=== PATIENT | female | born 2000 | race Caucasian/White ===

== ENCOUNTER 2022-11-20 08:54 | Emergency (ER) | payer OTHER, SELFPAY ==
[2022-11-20 09:09] VITALS: BP 145/114; PULSE 76; RESP 18; TEMP 37.3; O2SAT 97
[2022-11-20 09:10] VITALS: BP 145/114; PULSE 76; RESP 18; TEMP 37.3; O2SAT 97
--- NOTE | 2022-11-20 09:32 | ED.ASTHMA ---
HPI - Asthma General Chief Complaint: Asthma Stated Complaint: asthma, need dif inhaler Source: patient Mode of arrival: ambulatory Limitations: no limitations History of Present Illness HPI Narrative: 22 y/o female with hx asthma presented for c/o sob and wheezing. Worsening since yesterday. Pt used albuterol inhaler several times since 4pm. States it is and does not usually require it. Patient reports difficulty taking full breaths, hears wheezing at the end of breaths. She restarted singulair last week. 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 Denies n/v/d/f/c. Related Data Allergies Allergy/AdvReac Type Severity Reaction Status Date / Time No Known Allergies Allergy Unverified 11/20/22 09:08 Review of Systems Review of Systems: CONSTITUTIONAL: Denies body aches, fever, chills, or sweats. EYES: Denies visual changes, redness, or discharge. ENT: Denies rhinorrhea, congestion, sore throat, or otalgia. CARDIOVASCULAR: Denies chest pain, palpitations, or edema. RESPIRATORY: Reports cough, sob, wheezing. GASTROINTESTINAL: Denies abdominal pain, nausea, vomiting, or diarrhea. GENITOURINARY: Denies dysuria or hematuria. SKIN: Denies rash, itching, or wounds. MUSCULOSKELETAL: Denies back pain, joint pain, or myalgia. All systems reviewed & are unremarkable except as noted in HPI and below PMFSH Past Medical History Medical History (Updated 11/20/22 @ 10:37 by Vannessa Little, YANET) Asthma Comments At time of signature, I have reviewed and agree with nursing past medical, surgical, social and family history unless otherwise noted. Please see nursing chart for further information. There is no relevant family history pertinent to the presenting complaint Exam Narrative: GENERAL: Well-appearing, in no acute distress. EYES: EOMI. No redness or drainage. Conjunctivae normal. ENT: Mucous membranes pink and moist. No rhinorrhea. TMs normal bilaterally. Throat normal. Uvula midline. NECK: Normal AROM. Supple. CHEST: No respiratory distress. Lungs diminished with wheezing to all gallo. HEART: Regular rate and rhythm. No murmur appreciated. ABDOMEN: Soft, nontender, nondistended, normal active bowel sounds. EXTREMITIES: Normal range of motion. No edema. SKIN: Warm, dry, no rash. Capillary refill normal. Normal skin turgor. NEURO: Alert and oriented x3. Gait steady. Course Course Emergency Course: Patient is aware of diagnosis, understands and agrees to treatment plan. Anticipatory guidance given. Patient agrees to follow-up as directed and is aware of reasons to seek care at the emergency department. Portions of this record may have been created with voice recognition software Level of Care: Express Care Visit Vital Signs Vital signs: Vital Signs Temperature 99.1 F 11/20/22 09:09 Pulse Rate 76 11/20/22 09:09 Respiratory Rate 18 11/20/22 09:09 Blood Pressure 145/114 H 11/20/22 09:09 Pulse Oximetry 97 11/20/22 09:09 Oxygen Delivery Room Air 11/20/22 09:09 Temperature 99.1 F 11/20/22 09:10 Pulse Rate 89 11/20/22 10:00 Respiratory Rate 19 11/20/22 10:00 Blood Pressure 145/114 H 11/20/22 09:10 Pulse Oximetry 97 11/20/22 10:00 Oxygen Delivery Room Air 11/20/22 10:00 MDM - Asthma MDM Narrative Medical decision making narrative: Patient reassessed after Solumedrol and Albuterol treatment given. Reports improvement in breathing, with noticeable improvement in lung sounds. Discussed physical exam findings and Rx's. Advised supportive measures and signs/symptoms to go to the ER. Pt is appropriate for outpt treatment and f/u. Rx albuterol and Medrol indira sent. Differential Diagnosis Differential diagnosis: Likely Acute exacerbation, Status asthmaticus, Acute asthmatic bronchitis, PE, Pneumonia, COPD exacerbation and Pneumothorax Discharge Plan Discharge Clinical Impression: Asthma with acute exacerbation Qualifiers: Asthma severity: unspecified severit
[2022-11-20 09:40] VITALS: PULSE 89; RESP 18; O2SAT 97
[2022-11-20] MEDS: ALBUTEROL SULFATE NEB 2.5 MG/3 ML INH INHALATION (09:40)
[2022-11-20] MEDS: methylPREDNISolone SOD SUCC 125 MG VIAL IM (09:40)
[2022-11-20 10:00] VITALS: PULSE 89; RESP 19; O2SAT 97
== END 2022-11-20 10:53 | disposition home or self-care (01) ==
PROVIDERS: Emergency Provider Nurse Practitioner Family; PCP Pediatrics Adolescent Medicine
DX: J45.901 Unspecified asthma with (acute) exacerbation (principal)
CPT/HCPCS: 94640; 96372; 99203; G0463; J2930

== ENCOUNTER 2023-10-12 12:56 | Emergency (ER) | payer OTHER, SELFPAY ==
--- NOTE | ~2023-10-12 | XR_ITS ---
XR abdomen/kub 1V DATE: 10/12/2023 13:52 INDICATION: Left flank pain TECHNIQUE: 2 supine AP views COMPARISON: None FINDINGS: Subtle calcifications overlying the left pelvic area. No abnormal calcification is evident otherwise. Noncontrast CT abdomen pelvis examination would be more definitive for evaluation of any p ossible urinary tract calculi. The psoas shadows are intact. No visceromegaly. No evidence of bowel obstruction. The lung bases appear clear. Included skeletal structures are unremarkable. IMPRESSION: Nonspecific abdomen Faint calcification overlying the left pelvic area. Noncontrast CT abdomen pelvis would be more accur ate and definitive for evaluation of any urinary tract calculi Reviewed, dictated and finalized at [facility]. Reviewed, dictated and finalized at [facility]. IMPRESSION: Nonspecific abdomen Faint calcification overlying the left pelvic area. Noncontrast CT abdomen pelv is would be more accurate and definitive for evaluation of any urinary tract ca lculi
[2023-10-12 13:16] VITALS: BP 146/103; PULSE 76; RESP 16; TEMP 36.4; O2SAT 98
--- NOTE | 2023-10-12 13:16 | ED.FEMALEGU ---
HPI - Female Genitourinary General Chief complaint: Urogenital-Female Stated complaint: Bladder Infection Symptoms Time Seen by Provider: 10/12/23 13:42 Source: patient and RN notes reviewed Mode of arrival: ambulatory Limitations: no limitations History of Present Illness HPI Narrative: 23-year-old female presents concern for acute flank pain that started today. She reports urine frequency, urgency, urinating small amounts. Denies dysuria, fever aches, chills, sweats. She reports mild nausea. MD elicited complaint: flank pain Related Data Home Medications Medication Instructions Recorded Confirmed albuterol sulfate 90 mcg/actuation 1 puff inhalation Q4H PRN Wheezing 09/03/23 10/12/23 aerosol inhaler fluticasone furoate 50 50 mcg inhalation HS 09/03/23 10/12/23 mcg/actuation blister powder for inhalation (Arnuity Ellipta) montelukast 10 mg tablet 10 mg PO DAILY 09/03/23 10/12/23 Allergies Allergy/AdvReac Type Severity Reaction Status Date / Time No Known Allergies Allergy Unverified 10/12/23 13:11 Review of Systems Review of Systems: CONSTITUTIONAL: Denies malaise, chills, sweats, or fever. CARDIOVASCULAR: Denies chest pain, palpitations, or edema. RESPIRATORY: Denies cough or dyspnea. GASTROINTESTINAL: Denies abdominal pain, nausea, vomiting, diarrhea GENITOURINARY: Denies dysuria. Reports frequency, urgency, suprapubic pressure.. Reports right flank pain SKIN: Denies rash or itching. MUSCULOSKELETAL: Denies back pain or myalgia. All systems reviewed & are unremarkable except as noted in HPI and below PMFSH Past Medical History Medical History (Updated 10/12/23 @ 14:11 by Laurie Pope NP) Anxiety Asthma Depression Encounter to establish care Environmental allergies Seasonal allergies Surgical History Surgical History (Updated 09/03/23 @ 08:54 by Carl Valdes CMA) H/O knee surgery Family History Family History (Updated 09/03/23 @ 08:19 by Carl Valdes CMA) Mother High cholesterol Social History Social History (Updated 09/03/23 @ 08:48 by Carl Valdes CMA) Smoking status: Never smoker Alcohol intake: current Substance use: never Current Housing: Decline to Answer Concerned About Future Housing: Decline to Answer Difficulty Paying Gas/Electric Bills: Decline to Answer Difficulty Paying for Meds: Decline to Answer Currently Unemployed: Decline to Answer Education: Decline to Answer Difficulty w/ Childcare or Family Care: Decline to Answer Comments At time of signature, agree with nursing past medical, surgical, social and family history. There is no relevant family history pertinent to the presenting complaint Exam Narrative: GENERAL: Nontoxic-appearing, well-nourished, and in no acute distress. HEAD: Normocephalic. EYES: PERRLA, conjunctivae clear. NECK: Supple. No lymphadenopathy CHEST: Clear to auscultation. No respiratory distress. HEART: Regular rate and rhythm. ABDOMEN: Right CVA tenderness SKIN: Warm, dry, no rash. NEURO: Alert and oriented x3. PSYCH: Anxious, fidgety Course Course Emergency Course: I discussed x-ray findings with patient. Her symptoms are consistent with nephrolithiasis, x-ray is indicative of possible nephrolithiasis. Patient reports she is having a significant amount of pain, we discussed transfer to ER for confirmation of stone and pain control. Patient is concerned about waiting in the waiting room with the pain she is in. I will prescribe treatment for nephrolith a cyst with referral to Urology, patient was instructed to go to the ER if her pain is not controllable with these medications. Patient is aware of, understands and agrees to treatment plan. Anticipatory guidance given. Patient agrees to follow-up as directed and is aware of reasons to seek care at the emergency department. Portions of this record may have been created with voice recognition software Level of Care: Express Care Vis
[2023-10-12] MEDS: ACETAMINOPHEN 500 MG TABLET 1000 MG PO (13:50)
== END 2023-10-12 14:19 | disposition home or self-care (01) ==
PROVIDERS: Emergency Provider Nurse Practitioner; PCP Nurse Practitioner Family
DX: R10.9 Unspecified abdominal pain (principal); J45.909 Unspecified asthma, uncomplicated; F41.9 Anxiety disorder, unspecified; F32.A Depression, unspecified
CPT/HCPCS: 74018; 81003; 87086; 87088; 99213; A9270; G0463